=== PATIENT | male | born 1975 | race Caucasian/White ===

== ENCOUNTER 2018-06-02 08:42 | Emergency (ER) | payer BC, SELFPAY ==
[2018-06-02 08:49] VITALS: BP 131/77; PULSE 52; RESP 16; TEMP 36.3; O2SAT 100
--- NOTE | 2018-06-02 09:12 | W.ED.GENAD ---
Discharge Plan Disposition Patient Disposition: HOME Condition: Stable Discharge Details Chief Complaint: EyeProblem Clinical Impression: Conjunctivitis of both eyes ED Provider: Pawan Arreaga Home Meds and New Rx's Prescriptions: New polymyxin B sulf-trimethoprim 10,000 unit- 1 mg/mL drops 1 drp ophthalmic (eye) Q3H 7 Days RF: 0 Discharge Instructions Instructions: Conjunctivitis (ED) Additional Instructions: Return to the emergency department for any new or significant worsening of symptoms otherwise follow-up with your primary care provider or medical research associate for reassessment as needed Stand Alone Forms: Work Release Referrals: Primary Care Provider [Outside] Medical Decision Making Patient presenting to the emergency room for chief complaint of possible pinkeye. Patient states that his son recently had conjunctivitis and was treated with antibiotics. Day ago he started noticing some redness itching and swelling to his eyes. Patient denies any vision loss vision change, fever chills, or other cold symptoms. Physical exam is consistent with conjunctivitis. Did discuss with patient viral versus bacterial given the patient has no other viral symptoms and no recent colds, and exposure to sun with bacterial conjunctival there is concern for possible bacterial etiology. Patient placed upon antibiotics and withheld from work for the next 48 hours and encouraged to return for any new or significant worsening of symptoms. After discussion of diagnosis and plan of care patient has no further needs, questions, or concerns and states clear understanding to return to the emergency department for any worsening symptoms. HPI General Mode of arrival: ambulatory. Date/Time Provider Initiated Documentation: 06/02/18 09:07. Limitations to Documentation: no limitations. Information obtained by: patient and RN notes reviewed. History of Present Illness 42 year old M presents to the emergency department with the chief complaint of pink eye, described as mild, with intensity rated at 2. Quality is described as burning (Itching), and is localized to the eyes. Patient started experiencing this day(s) (1) and it has been constant. No relieving factors improve symptom(s), No exacerbating factors reported . Patient did receive the following treatments prior to arrival, none Related Data Home Medications Medication Instructions Recorded Confirmed polymyxin B sulf-trimethoprim 1 drp OPHTHALMIC (EYE) Q3H 7 Days 06/02/18 ml Previous Rx's Medication Instructions Recorded polymyxin B sulf-trimethoprim 1 drp OPHTHALMIC (EYE) Q3H 7 Days 11/12/18 ml Allergies Allergy/AdvReac Type Severity Reaction Status Date / Time No Known Allergies Allergy Unverified 06/02/18 08:51 General Stated Complaint: EyeProblem MARY: 4 Review of Systems Constitutional Denies chills, Denies fever(s) and Denies headache(s) Eyes Reports as per HPI, Denies blurry vision, Denies change in vision, Reports eye discharge, Reports itchy eyes and Denies eye pain ENT Denies ear discharge, Denies otalgia, Denies headache(s), Denies nasal discharge, Denies sinus pain and Denies sore throat Respiratory Denies cough Neurologic Denies headache(s) Allergic/Immunologic Reports itchy eyes PFSH Social History Smoking/Tobacco Use Status: Never Exam Const General: cooperative, healthy appearing, comfortable and no acute distress Orientation: alert, awake and oriented x3 HENMT Head: normal to inspection, normocephalic and atraumatic Ears: hearing grossly normal bilaterally and external ears normal General nose exam: external nose normal Face and sinus: normal facial exam Eyes Alignment and Position: alignment normal Periorbital: periorbital findings normal Eyelids: eyelid abnormality right upper eyelid swelling, right lower eyelid swelling, left upper eyelid swelling and left lower eyelid swelling Conjunctivae: conjunctival abnormality bilaterally conjunctival injection diffuse and discharge mucoid Sclera: scleral abnormality bilaterally scleral injection diffuse (mild) Cornea: corneas normal Pupils: PERRL EOM: EOM intact bilaterally Neck Neck: normal visual inspection and full ROM Course Vital Signs Temperature 36.3 C L 06/02/18 08:49 Pulse 52 L 06/02/18 08:49 Respiratory Rate 16 06/02/18 08:49 Blood Pressure 131/77 06/02/18 08:49 Pulse Oximetry 100 06/02/18 08:49 Temperature 36.3 C L 06/02/18 08:49 Temperature Source Temporal Artery Scan 06/02/18 08:49 Pulse 52 L 06/02/18 08:49 Respiratory Rate 16 06/02/18 08:49 Respiratory Effort Non-Labored 06/02/18 08:50 Blood Pressure 131/77 06/02/18 08:49 Blood Pressure Position Sitting 06/02/18 08:49 Pulse Oximetry 100 06/02/18 08:49 Oxygen Delivery Method Room Air 06/02/18 08:49 Oxygen Flow Rate 0 06/02/18 08:49 Pain Level 0 06/02/18 08:49
--- NOTE | 2018-06-02 09:17 | ED.GENADUL_ITS ---
Discharge Plan Disposition Patient Disposition: HOME Condition: Stable Discharge Details Chief Complaint: EyeProblem Clinical Impression: Conjunctivitis of both eyes ED Provider: Pawan Arreaga Home Meds and New Rx's Prescriptions: New polymyxin B sulf-trimethoprim 10,000 unit- 1 mg/mL drops 1 drp ophthalmic (eye) Q3H 7 Days RF: 0 Discharge Instructions Instructions: Conjunctivitis (ED) Additional Instructions: Return to the emergency department for any new or significant worsening of symptoms otherwise follow-up with your primary care provider or pump runner for reassessment as needed Stand Alone Forms: Work Release Referrals: Primary Care Provider [Outside] Medical Decision Making Patient presenting to the emergency room for chief complaint of possible pinkeye. Patient states that his son recently had conjunctivitis and was treated with antibiotics. Day ago he started noticing some redness itching and swelling to his eyes. Patient denies any vision loss vision change, fever chills, or other cold symptoms. Physical exam is consistent with conjunctivitis. Did discuss with patient viral versus bacterial given the patient has no other viral symptoms and no recent colds, and exposure to sun with bacterial conjunctival there is concern for possible bacterial etiology. Patient placed upon antibiotics and withheld from work for the next 48 hours and encouraged to return for any new or significant worsening of symptoms. After discussion of diagnosis and plan of care patient has no further needs, questions, or concerns and states clear understanding to return to the emergency department for any worsening symptoms. HPI General Mode of arrival: ambulatory . Date/Time Provider Initiated Documentation: 06/02/18 09:07 . Limitations to Documentation: no limitations . Information obtained by: patient and RN notes reviewed . History of Present Illness 42 year old M presents to the emergency department with the chief complaint of pink eye, described as mild, with intensity rated at 2. Quality is described as burning (Itching), and is localized to the eyes. Patient started experiencing this day(s) (1) and it has been constant. No relieving factors improve symptom(s), No exacerbating factors reported . Patient did receive the following treatments prior to arrival, none Related Data Home Medications Medication Instructions Recorded Confirmed polymyxin B sulf-trimethoprim 1 drp OPHTHALMIC (EYE) Q3H 7 Days 06/02/18 ml Previous Rx's Medication Instructions Recorded polymyxin B sulf-trimethoprim 1 drp OPHTHALMIC (EYE) Q3H 7 Days 11/12/18 ml Allergies Allergy/AdvReac Type Severity Reaction Status Date / Time No Known Allergies Allergy Unverified 06/02/18 08:51 General Stated Complaint: EyeProblem MARY: 4 Review of Systems Constitutional Denies chills, Denies fever(s) and Denies headache(s) Eyes Reports as per HPI, Denies blurry vision, Denies change in vision, Reports eye discharge, Reports itchy eyes and Denies eye pain ENT Denies ear discharge, Denies otalgia, Denies headache(s), Denies nasal discharge , Denies sinus pain and Denies sore throat Respiratory Denies cough Neurologic Denies headache(s) Allergic/Immunologic Reports itchy eyes PFSH Social History Smoking/Tobacco Use Status: Never Exam Const General: cooperative, healthy appearing, comfortable and no acute distress Orientation: alert, awake and oriented x3 HENMT Head: normal to inspection, normocephalic and atraumatic Ears: hearing grossly normal bilaterally and external ears normal General nose exam: external nose normal Face and sinus: normal facial exam Eyes Alignment and Position: alignment normal Periorbital: periorbital findings normal Eyelids: eyelid abnormality right upper eyelid swelling, right lower eyelid swelling, left upper eyelid swelling and left lower eyelid swelling Conjunctivae: conjunctival abnormality bilaterally conjunctival injection diffuse and discharge mucoid Sclera: scleral abnormality bilaterally scleral injection diffuse (mild) Cornea: corneas normal Pupils: PERRL EOM: EOM intact bilaterally Neck Neck: normal visual inspection and full ROM Course Vital Signs Temperature 36.3 C L 06/02/18 08:49 Pulse 52 L 06/02/18 08:49 Respiratory Rate 16 06/02/18 08:49 Blood Pressure 131/77 06/02/18 08:49 Pulse Oximetry 100 06/02/18 08:49 Temperature 36.3 C L 06/02/18 08:49 Temperature Source Temporal Artery Scan 06/02/18 08:49 Pulse 52 L 06/02/18 08:49 Respiratory Rate 16 06/02/18 08:49 Respiratory Effort Non-Labored 06/02/18 08:50 Blood Pressure 131/77 06/02/18 08:49 Blood Pressure Position Sitting 06/02/18 08:49 Pulse Oximetry 100 06/02/18 08:49 Oxygen Delivery Method Room Air 06/02/18 08:49 Oxygen Flow Rate 0 06/02/18 08:49 Pain Level 0 06/02/18 08:49
== END 2018-06-02 09:27 | disposition home or self-care (01) ==
LOC: ER 09:35
PROVIDERS: Emergency Provider Nurse Practitioner Family
DX: H10.33 Unspecified acute conjunctivitis, bilateral (principal)
CPT/HCPCS: 99283